=== PATIENT | female | born 2000 | race Two or more races ===

== ENCOUNTER → 2025-08-28 14:05 | Outpatient (CLI) | payer OTHER | END | disposition home or self-care (01) | LOC: PRENATAL 14:05 | PROVIDERS: ATTEND Obstetrics & Gynecology Maternal & Fetal Medicine | DX: O44.00 Complete placenta previa NOS or without hemorrhage, unspecified trimester (principal); O28.1 Abnormal biochemical finding on antenatal screening of mother; Z3A.20 20 weeks gestation of pregnancy ==

== ENCOUNTER 2025-10-31 15:23 | Outpatient (CLI) | payer OTHER | END 2025-10-31 15:24 | disposition home or self-care (01) | LOC: PRENATAL 15:23 | PROVIDERS: ATTEND Obstetrics & Gynecology Maternal & Fetal Medicine | DX: O26.843 Uterine size-date discrepancy, third trimester (principal); O36.8130 Decreased fetal movements, third trimester, not applicable or unspecified; O44.03 Complete placenta previa NOS or without hemorrhage, third trimester; O28.3 Abnormal ultrasonic finding on antenatal screening of mother; O99.013 Anemia complicating pregnancy, third trimester; Z3A.29 29 weeks gestation of pregnancy ==